=== PATIENT | male | born 1990 | race Caucasian/White ===

== ENCOUNTER 2017-02-27 17:22 | Emergency (ER) | payer SELFPAY ==
[2017-02-27 17:35] VITALS: BP 130/89
--- NOTE | 2017-02-27 19:04 | ED ---
Lower Extremity - HPI Summary HPI Summary: 26M presents with left ankle pain for 2 weeks. He states two weeks ago he rolled his ankle while he was skateboarding and someone landed on the outside of his ankle. He was seen at the [facility] as he does not have insurance. He was told had bad sprain and did not have any imaging done. He has been staying off the ankle. He states the swelling has decreased. He states he still has pain when he bears weight. Was seen at [facility] and advised to come here for xray to make sure not fractured. denies any numbness or tingling. has been taking ibuprofen for pain. - History of Current Complaint Chief Complaint: EDExtremityLower Stated Complaint: LT ANKLE INJURY Time Seen by Provider: 02/27/17 18:25 Pain Intensity: 6 - Allergies/Home Medications Allergies/Adverse Reactions: Allergies Allergy/AdvReac Type Severity Reaction Status Date / Time No Known Allergies Allergy Verified 02/27/17 17:30 PMH/Surg Hx/FS Hx/Imm Hx Endocrine/Hematology History: Denies: Hx Anticoagulant Therapy Cardiovascular History: Denies: Hx Hypertension - Immunization History Immunizations Up to Date: Yes Infectious Disease History: No Infectious Disease History: Denies: Traveled Outside the [place] in Last 30 Days - Family History Known Family History: Negative: Diabetes - Social History Alcohol Use: Occasionally Substance Use Type: Reports: None Smoking Status (MU): Light Every Day Tobacco Smoker Review of Systems Negative: Fever Negative: Chest Pain Negative: Shortness Of Breath Positive: Myalgia - left ankle pain All Other Systems Reviewed And Are Negative: Yes Physical Exam Triage Information Reviewed: Yes Vital Signs On Initial Exam: Initial Vitals Temp Pulse Resp BP Pulse Ox 97.8 F 71 16 130/89 98 02/27/17 17:31 02/27/17 17:31 02/27/17 17:31 02/27/17 17:31 02/27/17 17:31 Vital Signs Reviewed: Yes Appearance: Positive: Well-Appearing Skin: Positive: Warm, Dry Head/Face: Positive: Normal Head/Face Inspection Eyes: Positive: Normal, EOMI, NAYAN, Conjunctiva Clear ENT: Positive: Normal ENT inspection, Pharynx normal, TMs normal Respiratory/Lung Sounds: Positive: Clear to Auscultation, Breath Sounds Present Cardiovascular: Positive: Normal, RRR Musculoskeletal: Positive: Strength/ROM Intact - left ankle with pain, Other - tender along lateral aspect of ankle, good pulses, capillary <2 secs, sensation grossly intact - [place] Coma Scale Coma Scale Total: 15 Diagnostics - Vital Signs Vital Signs Temp Pulse Resp BP Pulse Ox 02/27/17 17:31 97.8 F 71 16 130/89 98 - Laboratory Lab Statement: Any lab studies that have been ordered have been reviewed, and results considered in the medical decision making process. - Radiology ankle Xray Interpretation: No Acute Changes Radiology Interpretation Completed By: Radiologist Lower Extremity Course/Dx - Course Course Of Treatment: 26M presents with left ankle pain for 2 weeks. He states two weeks ago he rolled his ankle while he was skateboarding and someone landed on the outside of his ankle. He was seen at the [facility] as he does not have insurance. He was told had bad sprain and did not have any imaging done. He has been staying off the ankle. He states the swelling has decreased. He states he still has pain when he bears weight. Was seen at [facility] and advised to come here for xray to make sure not fractured. denies any numbness or tingling. has been taking ibuprofen for pain. on exam has tender over lateral aspect of left ankle, neurovascular intact. xray normal. patient understands and agrees with plan. - Diagnoses Differential Diagnosis/HQI/PQRI: Positive: Fracture (Closed), Sprain, Strain Provider Diagnoses: Left ankle sprain Discharge - Discharge Plan Condition: Good Disposition: HOME Patient Education Materials: Ankle Sprain (ED) Referrals: Adalid Fletcher MD [Medical Doctor] - Additional Instructions: Stay off ankle as much as possible Ice, elevate, keep in XUAN Ibuprofen every 6 hours for pain Follow up with ortho if no improvement Return to ED if develop any new or worsening symptoms
--- NOTE | 2017-02-27 21:13 | RAD ---
INDICATION: Bruising at the medial malleolus 2 weeks after a left ankle injury. COMPARISON: None. TECHNIQUE: 4 views of the left ankle were obtained. FINDINGS: The well corticated bones exhibit normal alignment. Joint spaces appear maintained. No fracture is seen. IMPRESSION: Normal ankle radiograph. If the patient's symptoms persist, follow-up imaging is recommended.
== END 2017-02-27 19:55 | disposition home or self-care (01) ==
LOC: ED 17:22
DX: S93.402A Sprain of unspecified ligament of left ankle, initial encounter (principal); X50.9XXA Other and unspecified overexertion or strenuous movements or postures, initial encounter; Y93.51 Activity, roller skating (inline) and skateboarding; Y92.9 Unspecified place or not applicable; Z72.0 Tobacco use
CPT/HCPCS: 99282